=== PATIENT | male | born 1970 | race Caucasian/White ===

== ENCOUNTER 2023-11-28 06:58 | Emergency (ER) | payer BC ==
[~2023-11-28] VITALS: Ht 182.9 cm; Wt 111.4 kg
[2023-11-28 07:06] VITALS: TEMP 97.7
[2023-11-28] MEDS ORDERED: oxyCODONE/Acetaminophen 7.5-325 MG TAB PO ONE (07:30)
[2023-11-28] MEDS ORDERED: PERCOCET 325 MG1 TA2 PO (08:22)
[2023-11-28 08:33] VITALS: BP 133/81; PULSE 57
== END 2023-11-28 08:35 | disposition home or self-care (01) ==
LOC: COL.ER 06:58
DX: G89.18 Other acute postprocedural pain (principal); M25.552 Pain in left hip